=== PATIENT | female | born 1970 | race African-American/Black ===

== ENCOUNTER 2018-04-13 13:14 | Emergency (ER) | payer BC, OTHER ==
[~2018-04-13] VITALS: Ht 167.6 cm; Wt 77.3 kg
[~2018-04-13 13:14] MED LIST: ACET500C5 PO; CETI10CA PO; IBUP800T48 PO; PRED20TA PO
[2018-04-13 13:35] VITALS: Ht 167.6 cm; Wt 77.3 kg
[2018-04-13] MEDS ORDERED: SOD CHLORIDE 0.9% 1,000 ML IV STA (16:28)
[2018-04-13] MEDS ORDERED: ONDANSETRON 4 MG INJ IV STA (16:28)
--- NOTE | 2018-04-13 16:29 | ERD ---
ER Documentation Chief Complaint Chief Complaint VOMITTING & WEAKNESS ABOUT 1HR AGO HPI 47-year-old female presenting with acute vomiting that started about 1 hour prior to arrival. Vomiting is nonbloody and nonbilious. She has had some associated loose stools. She complains of generalized weakness. No associated abdominal pain, fever, chills, dysuria, chest pain, shortness of breath. No sick contacts. She was seen earlier this morning for a regular checkup with her primary care doctor and was feeling well. ROS All systems reviewed and are negative except as per history of present illness. Medications Home Meds Active Scripts Metoclopramide* (Reglan*) 10 Mg Tablet, 10 MG PO Q6 PRN for NAUSEA AND/OR VOMITING, #10 TAB Prov:ASHKAN LAWSON MD 04/13/18 Reported Medications Levothyroxine Sodium (Levothroid) 100 Mcg Tablet, 100 MCG ORAL AM 04/13/18 Miscellaneous* PUMP (Miscellaneous* PUMP) 1 Each Pump.resvr, 1 PUMP HUMALOG INSULIN , EA 04/13/18 Discontinued Scripts Cetirizine Hcl* (Zyrtec*) 10 Mg Capsule, 10 MG PO DAILY, #14 TAB.CHEW Prov:CHRISTIANO STEVENSON PA-C 02/11/16 Acetaminophen* (Tylophen*) 500 Mg Capsule, 1 CAP PO Q6H PRN for PAIN AND OR ELEVATED TEMP, #30 CAP Prov:CHRISTIANO STEVENSON PA-C 02/11/16 Ibuprofen* (Motrin*) 800 Mg Tab, 800 MG PO Q6, #30 TAB Prov:CHRISTIANO STEVENSON PA-C 02/11/16 Prednisone* (Prednisone*) 20 Mg Tab, 40 MG PO DAILY for 4 Days, TAB Prov:CHRISTIANO STEVENSON PA-C 02/11/16 Allergies Allergies: Coded Allergies: No Known Allergy (Unverified , 04/13/18) PMhx/Soc History of Surgery: Yes (, SHOULDER) Anesthesia Reaction: Yes (NAUSEA) Hx Neurological Disorder: No Hx Respiratory Disorders: No Hx Cardiac Disorders: No Hx Psychiatric Problems: No Hx Miscellaneous Medical Probl: Yes (DM TYPE I, hypothyroid) Hx Alcohol Use: Yes (occ) Hx Substance Use: No FmHx Family History: No diabetes Physical Exam Vitals Vital Signs Date Temp Pulse Resp B/P (MAP) Pulse Ox O2 O2 Flow FiO2 Time Delivery Rate 04/13/18 98.6 81 15 131/72 100 Room Air 19:40 (91) 04/13/18 83 17 135/74 100 High Flow 16:48 (94) 04/13/18 97.3 72 18 147/78 100 13:35 (101) Physical Exam Const: Mild distress due to nausea, nontoxic Head: Atraumatic Eyes: Normal Conjunctiva ENT: Normal External Ears, Nose and Mouth. Neck: Full range of motion. No meningismus. Resp: Clear to auscultation bilaterally Cardio: Regular rate and rhythm, no murmurs Abd: Soft, non tender, non distended. Negative Wan sign. No McBurney's point tenderness. Normal bowel sounds Skin: No petechiae or rashes Back: No midline or flank tenderness Ext: No cyanosis, or edema Neur: Awake and alert Psych: Normal Mood and Affect Result Diagram: 04/13/18 1648 04/13/18 1648 Results 24 hrs Laboratory Tests Test 04/13/18 13:38 04/13/18 16:44 04/13/18 16:48 04/13/18 17:20 Bedside Glucose 182 mg/dL 261 mg/dL White Blood Count 13.8 10^3/ul Red Blood Count 4.37 10^6/ul Hemoglobin 12.6 g/dl Hematocrit 38.9 % Mean Corpuscular 89.0 fl Volume Mean Corpuscular 28.8 pg Hemoglobin Mean Corpuscular 32.4 g/dl Hemoglobin Concent Red Cell 13.0 % Distribution Width Platelet Count 318 10^3/UL Mean Platelet 10.5 fl Volume Immature 0.400 % Granulocytes % Neutrophils % 91.6 % Lymphocytes % 4.9 % Monocytes % 2.8 % Eosinophils % 0.0 % Basophils % 0.3 % Nucleated Red Blood 0.0 /100WBC Cells % Immature 0.050 10^3/ul Granulocytes # Neutrophils # 12.6 10^3/ul Lymphocytes # 0.7 10^3/ul Monocytes # 0.4 10^3/ul Eosinophils # 0.0 10^3/ul Basophils # 0.0 10^3/ul Nucleated Red Blood 0.0 10^3/ul Cells # Sodium Level 137 mmol/L Potassium Level 4.7 mmol/L Chloride Level 102 mmol/L Carbon Dioxide 23 mmol/L Level Anion Gap 12 Blood Urea Nitrogen 9 mg/dl Creatinine 0.69 mg/dl Est Glomerular > 60 mL/min Filtrat Rate mL/min Glucose Level 267 mg/dl Calcium Level 9.7 mg/dl Total Bilirubin 0.8 mg/dl Direct Bilirubin 0.00 mg/dl Indirect Bilirubin 0.8 mg/dl Aspartate Amino 29 IU/L Transf (AST/SGOT) Alanine 13 IU/L Aminotransferase (A LT/SGPT) Alkaline 85 IU/L Phosphatase Total Protein 8.0 g/dl Albumin 4.2 g/dl Globulin 3.80 g/dl Albumin/Globulin 1.10 Ratio Lipase 25 U/L Serum HCG, NEGATIVE Qualitative Current Medications Medications Dose Sig/Frank Start Time Status Last (Trade) Ordered Route PRN Stop Time Admin Dose Reason Admin Sodium 1,000 ml @ Q1H STAT 04/13/18 DC 04/13/18 Chloride 1,000 mls/hr IV 16:28 16:45 04/13/18 17:27 Ondansetron 4 mg ONCE STAT 04/13/18 DC 04/13/18 HCl (Zofran IV 16:28 16:45 Inj) 04/13/18 16:29 Ondansetron 4 mg ONCE STAT 04/13/18 DC 04/13/18 HCl (Zofran ODT 16:47 17:01 Odt) 04/13/18 16:48 10 mg ONCE ONCE 04/13/18 DC 04/13/18 Metoclopramid IV 18:30 18:16 e HCl 04/13/18 18:31 (Reglan) Procedures/MDM EMERGENT LABS AND DIAGNOSTIC STUDIES: Lab Results above were reviewed and interpreted by me. CBC mild leukocytosis, likely stress response CMP: Hyperglycemic without evidence of acidosis. No evidence of electrolyte abnormality, renal failure, liver failure, or biliary obstruction Lipase: no evidence of pancreatitis Initial Nursing notes reviewed. Previous Medical Records requested via the Electronic Health Record. EMERGENCY DEPARTMENT COURSE / MEDICAL DECISION MAKING: Patient presents with acute onset vomiting with generalized weakness. Suspect intracranial hemorrhage or meningitis. I do not suspect serious bacterial infection or acute surgical abdomen. Patient was treated with antiemetics and IV fluids with significant improvement of her symptoms. Patient likely suffering from gastroenteritis. Doubt bacterial. Prescription for antiemetics given. Return precautions discussed. Oral hydration encouraged. Patient's blood pressure was elevated (>120/80) but appears stable without evidence of hypertensive emergency or urgency. The patient was counseled about the risks of hypertension and urged to pursue outpatient monitoring and therapy within a week with their primary care physician. Departure Diagnosis: Primary Impression: Nausea, vomiting, and diarrhea Condition: Stable ASHKAN LAWSON MD Apr 13, 2018 16:29
[2018-04-13] MEDS ORDERED: ONDANSETRON (ODT) 4 MG TAB ODT STA (16:47)
[2018-04-13] MEDS ORDERED: PUMP MISCELLANEOUS MC (17:09)
[2018-04-13] MEDS ORDERED: LEVO-86 ORAL (17:10)
[2018-04-13] MEDS ORDERED: METO10TA92 PO (18:26)
[2018-04-13] MEDS ORDERED: METOCLOPRAMIDE 10 MG INJ IV ONE (18:30)
[2018-04-13 19:40] VITALS: BP 131/72; PULSE 81; RESP 15
== END 2018-04-13 19:40 | disposition home or self-care (01) ==
LOC: E/R 13:14
DX: R11.2 Nausea with vomiting, unspecified (principal); R19.7 Diarrhea, unspecified; E10.9 Type 1 diabetes mellitus without complications; E03.9 Hypothyroidism, unspecified
CPT/HCPCS: 36415; 80053; 82962; 83690; 84703; 85025; 96361; 96374; 96375; 99284; J2405; J2765; J7030